=== PATIENT | female | born 1990 | race African-American/Black ===

== ENCOUNTER 2016-06-15 23:46 | Emergency (ER) | payer MEDICAID ==
[~2016-06-15] VITALS: Ht 175.3 cm; Wt 75.0 kg
[~2016-06-15 23:46] MED LIST: IBUP-779 PO; IRON18TA PO; MULT-1146 PO
[2016-06-16] MEDS ORDERED: BACITRACIN ZINC OINT UDPKT TOP ONE ×2 (04:30)
[2016-06-16] MEDS ORDERED: IBUPROFEN 600MG TABLET PO ONE (04:30)
[2016-06-16] MEDS ORDERED: LIDOCAINE HCL 1% 20ML VIAL (Pyxis) INJ MC ONE (04:30)
[2016-06-16] MEDS ORDERED: LIDOCAINE HCL/EPINEPHRINE 1%-EPI 1:100,000 20 ML VIAL MC ONE (04:30)
[2016-06-16 05:00] VITALS: BP 123/71
== END 2016-06-16 06:15 | disposition home or self-care (01) ==
LOC: ER 23:46
DX: S61.210A Laceration without foreign body of right index finger without damage to nail, initial encounter (principal); S61.212A Laceration without foreign body of right middle finger without damage to nail, initial encounter; S61.011A Laceration without foreign body of right thumb without damage to nail, initial encounter; F12.10 Cannabis abuse, uncomplicated; W26.0XXA Contact with knife, initial encounter; Y93.89 Activity, other specified; Y92.018 Other place in single-family (private) house as the place of occurrence of the external cause
CPT/HCPCS: 12002; 99283; J3490; X7700; Z7610; A4565

== ENCOUNTER 2016-06-18 11:33 | Emergency (ER) | payer MEDICAID ==
[~2016-06-18] VITALS: Ht 175.3 cm; Wt 73.0 kg
[2016-06-18] MEDS ORDERED: HYDROCODONE/ACETAMINOPHEN 5/325MG TABLET PO ONE (12:15)
[2016-06-18 12:26] VITALS: BP 130/70
== END 2016-06-18 13:52 | disposition home or self-care (01) ==
LOC: ER 13:25
DX: Z48.01 Encounter for change or removal of surgical wound dressing (principal); F17.210 Nicotine dependence, cigarettes, uncomplicated; F12.10 Cannabis abuse, uncomplicated; Z79.1 Long term (current) use of non-steroidal anti-inflammatories (NSAID); Z79.899 Other long term (current) drug therapy
CPT/HCPCS: 99282

== ENCOUNTER 2016-06-25 16:50 | Emergency (ER) | payer MEDICAID ==
[~2016-06-25] VITALS: Ht 175.3 cm; Wt 68.0 kg
[2016-06-25 17:00] VITALS: BP 123/68
== END 2016-06-25 19:00 | disposition left against medical advice (07) ==
LOC: ER 16:51
DX: Z48.02 Encounter for removal of sutures (principal); Z53.21 Procedure and treatment not carried out due to patient leaving prior to being seen by health care provider

== ENCOUNTER 2016-07-30 14:52 | Emergency (ER) | payer MEDICAID ==
[~2016-07-30] VITALS: Ht 175.3 cm; Wt 75.0 kg
[2016-07-30 15:16] VITALS: BP 123/72
== END 2016-07-30 17:15 | disposition left against medical advice (07) ==
LOC: ER 16:58
DX: M54.9 Dorsalgia, unspecified (principal); Z53.21 Procedure and treatment not carried out due to patient leaving prior to being seen by health care provider

== ENCOUNTER 2016-11-28 10:10 | Emergency (ER) | payer MEDICAID ==
[~2016-11-28] VITALS: Ht 170.2 cm; Wt 68.0 kg
[2016-11-28] MEDS ORDERED: ACETAMINOPHEN 325MG TABLET PO ONE (14:15)
[2016-11-28 15:19] VITALS: BP 110/64
== END 2016-11-28 15:21 | disposition home or self-care (01) ==
LOC: ER 10:10
DX: O26.891 Other specified pregnancy related conditions, first trimester (principal); M54.5 Low back pain; R21 Rash and other nonspecific skin eruption; F12.10 Cannabis abuse, uncomplicated; Z3A.11 11 weeks gestation of pregnancy
CPT/HCPCS: 99283

== ENCOUNTER 2017-04-10 01:04 | Emergency (ER) | payer MEDICAID ==
[~2017-04-10] VITALS: Ht 175.3 cm; Wt 88.5 kg
[2017-04-10] MEDS ORDERED: ACETAMINOPHEN 500MG TABLET PO ONE (07:00)
[2017-04-10 07:10] VITALS: BP 116/65
== END 2017-04-10 07:20 | disposition home or self-care (01) ==
LOC: ER 01:04
DX: O26.893 Other specified pregnancy related conditions, third trimester (principal); K08.89 Other specified disorders of teeth and supporting structures; Z3A.30 30 weeks gestation of pregnancy
CPT/HCPCS: 99283

== ENCOUNTER 2017-05-30 21:02 | Observation (INO) | payer MEDICAID ==
[~2017-05-30] VITALS: Ht 175.3 cm; Wt 95.7 kg
[2017-05-30] MEDS ORDERED: PNV1TABL76 PO (21:29)
[2017-05-30] MEDS ORDERED: CEFAZOLIN SODIUM 1000MG/VIAL IV ONE (22:00)
[2017-05-30] MEDS ORDERED: DEXT 5%/LACTATED RINGERS 1,000 ML IV SCH (22:00)
[2017-05-30 22:24] LABS: CLARITY URINE CLOUDY (CLEAR); COLOR URINE YELLOW (YELLOW); KETONES URINE NEGATIVE (NEGATIVE); LEUKOCYTE ESTERASE URINE NEGATIVE (NEGATIVE); NITRITE URINE NEGATIVE (NEGATIVE); OCCULT BLOOD URINE NEGATIVE (NEGATIVE); PH URINE 6.5 (4.5-8.0); PROTEIN URINE NEGATIVE (NEGATIVE); SPECIFIC GRAVITY URINE 1.023 (1.005-1.030)
[2017-05-30] MEDS ORDERED: CEFAZOLIN 1000MG PREMIX 50 ML IV NR (23:00)
== END 2017-05-30 23:30 | disposition home or self-care (01) ==
LOC: L&D 21:02
PROVIDERS: ADMIT Obstetrics & Gynecology; ATTEND Obstetrics & Gynecology
DX: O26.893 Other specified pregnancy related conditions, third trimester (principal); R10.31 Right lower quadrant pain; Z3A.38 38 weeks gestation of pregnancy
CPT/HCPCS: 81003; 96365; 99281; G0378; J0690; 96360

== ENCOUNTER 2017-06-13 03:50 | Observation (INO) | payer MEDICAID ==
[~2017-06-13] VITALS: Ht 175.3 cm; Wt 97.5 kg
[~2017-06-13 03:50] MED LIST changes: -IBUP-779 PO; -MULT-1146 PO; +PNV1TABL76 PO
== END 2017-06-13 06:35 | disposition home or self-care (01) ==
LOC: L&D 03:50
PROVIDERS: ADMIT Obstetrics & Gynecology; ATTEND Obstetrics & Gynecology
DX: O26.893 Other specified pregnancy related conditions, third trimester (principal); R10.30 Lower abdominal pain, unspecified; O48.1 Prolonged pregnancy; Z3A.40 40 weeks gestation of pregnancy
CPT/HCPCS: G0378 ×2; 99281

== ENCOUNTER 2017-06-15 11:57 | Inpatient (IN) | payer MEDICAID ==
[~2017-06-15] VITALS: Ht 175.3 cm; Wt 97.1 kg
[2017-06-15] MEDS ORDERED: FOLI-43 PO (12:28)
[2017-06-15] MEDS ORDERED: METHYLERGONOVINE MALEATE 0.2 MG/ML IM PRN (15:30)
[2017-06-15] MEDS ORDERED: NALOXONE HCL 0.4 MG/ML 1ML VIAL IM PRN (15:30)
[2017-06-15] MEDS ORDERED: CARBOPROST TROMETHAMINE 250 MCG/ML AMPUL IM PRN (15:30)
[2017-06-15] MEDS ORDERED: LIDOCAINE HCL 1% 20ML VIAL (Pyxis) INJ INFIL SCH (15:30)
[2017-06-15] MEDS ORDERED: BUTORPHANOL TARTRATE 2 MG/ML VIAL IV PRN (15:30)
[2017-06-15] MEDS ORDERED: MISOPROSTOL 100MCG TABLET VG SCH (15:30)
[2017-06-15 15:58] LABS: CLARITY URINE CLOUDY (CLEAR); COLOR URINE YELLOW (YELLOW); KETONES URINE NEGATIVE (NEGATIVE); LEUKOCYTE ESTERASE URINE 3+ (NEGATIVE); NITRITE URINE NEGATIVE (NEGATIVE); OCCULT BLOOD URINE NEGATIVE (NEGATIVE); PH URINE 7.5 (4.5-8.0); PROTEIN URINE NEGATIVE (NEGATIVE); SPECIFIC GRAVITY URINE 1.004 (1.005-1.030); UROBILINOGEN URINE 0.2 E.U./dL (0.2-1.0)
[2017-06-15] MEDS ORDERED: DEXT 5%/LR + PITOCIN 20UNITS/L 1,000 ML IV SCH (16:00)
[2017-06-15 16:10] LABS: *AMPHETAMINES SCREEN URINE NEGATIVE (NEGATIVE); *BARBITURATES SCREEN URINE NEGATIVE (NEGATIVE); *BENZODIAZEPINES SCREEN URINE NEGATIVE (NEGATIVE)
[2017-06-15] MEDS: LACTATED RINGERS 1,000 ML IV SCH ×4 (16:10→22:56)
[2017-06-15 16:11] LABS: INR 0.9; PARTIAL THROMBOPLASTIN TIME 25.8 sec (23.4-31.0); PROTHROMBIN TIME 9.8 sec (9.4-11.6)
[2017-06-15 16:12] LABS: *COCAINE SCREEN URINE NEGATIVE (NEGATIVE); CANNABINOID URINE SCREEN NEGATIVE (NEGATIVE); METHADONE URINE SCREEN NEGATIVE (NEGATIVE); OPIATES URINE SCREEN NEGATIVE (NEGATIVE); PHENCYCLIDINE URINE SCREEN NEGATIVE (NEGATIVE)
[2017-06-15 16:13] LABS: BASOPHILS % 0.6 % (0.0-2.0); EOSINOPHILS % 1.6 % (0.0-5.0); HEMATOCRIT. 33.3 % (36.0-48.0); HEMOGLOBIN. 11.2 g/dL (12.0-16.0); LYMPHOCYTES % 17.2 % (20.0-50.0); MEAN CORPUSCULAR HEMOGLOBIN 30.7 pg (28.0-32.0); MEAN PLATELET VOLUME 9.7 fl (7.4-10.4); MONOCYTES % 9.5 % (2.0-8.0); NEUTROPHILS % 71.1 % (40.0-76.0); PLATELET 198 x1000/uL (130-400); RED BLOOD CELL COUNT 3.66 mill/uL (4.2-5.4); RED CELL DISTRIBUTION WIDTH 13.9 % (11.6-14.6)
[2017-06-15] MEDS ORDERED: LIDOCAINE HCL/PF 1% 10 MG/ML 5ML VIAL IJ SCH (16:15)
[2017-06-15 16:44] LABS: HEPATITIS B SURFACE ANTIGEN NEGATIVE; RUBELLA IGG 29.9 IU/mL (4.99-10)
[2017-06-15] MEDS ORDERED: TERBUTALINE SULFATE 1MG/ML VIAL SUBCUT NR (18:33)
[2017-06-15] MEDS ORDERED: TERBUTALINE SULFATE 1MG/ML VIAL SUBCUT PRN (21:30)
[2017-06-15] MEDS ORDERED: BUPIVACAINE HCL/PF 0.25% (2.5MG/ML) 10ML ONE (22:59)
[2017-06-15] MEDS ORDERED: BUPIVACAINE HCL/NS/PF EPIDURAL 100 ML EP ONE (22:59)
[2017-06-15] MEDS ORDERED: FENTANYL CITRATE/PF 50MCG/ML 2ML VIAL ONE (23:00)
[2017-06-16] MEDS ORDERED: DEXT 5%/LR + PITOCIN 20UNITS/L 1,000 ML IV SCH (00:56)
[2017-06-16] MEDS ORDERED: INFLUENZA VIRUS VACCINE 0.5ML SYR IM ONE (01:00)
[2017-06-16] MEDS ORDERED: LANOLIN OINT 0.25 GM TUBE TOP PRN (01:00)
[2017-06-16] MEDS ORDERED: GLYCERIN/WITCH HAZEL LEAF MEDICATED PAD TOP PRN (01:00)
[2017-06-16] MEDS ORDERED: BISACODYL 10MG SUPP PR PRN (01:00)
[2017-06-16] MEDS ORDERED: ACETAMINOPHEN WITH CODEINE 300/30MG TABLET PO PRN (01:00)
[2017-06-16] MEDS ORDERED: HEMORRHOIDAL SUPP PR PRN (01:00)
[2017-06-16] MEDS ORDERED: DIPHENHYDRAMINE 25MG CAPSULE PO PRN (01:00)
[2017-06-16 04:10] VITALS: BP 109/56
[2017-06-16 05:20] VITALS: BP 105/59
[2017-06-16] MEDS: ACETAMINOPHEN WITH CODEINE 300/30MG TABLET PO PRN (05:33)
[2017-06-16 08:00] VITALS: BP 99/61
[2017-06-16] MEDS ORDERED: TETANUS, DIPHTHERIA, PERTUSSIS VAC/PF 0.5ML (>7YR OLD) IM ONE (08:00)
[2017-06-16] MEDS: IBUPROFEN 400MG TABLET PO PRN ×2 (08:32→15:24)
[2017-06-16] MEDS: PRENATAL VIT/FE FUMARATE/FA TABLET PO SCH (08:32)
[2017-06-16 08:41] LABS: BASOPHILS % 0.1 % (0.0-2.0); EOSINOPHILS % 0.1 % (0.0-5.0); HEMATOCRIT. 31.3 % (36.0-48.0); HEMOGLOBIN. 10.4 g/dL (12.0-16.0); LYMPHOCYTES % 8.8 % (20.0-50.0); MEAN CORPUSCULAR HEMOGLOBIN 29.7 pg (28.0-32.0); MEAN CORPUSCULAR VOLUME 89.7 fL (81.0-99.0); MEAN PLATELET VOLUME 10.1 fl (7.4-10.4); MONOCYTES % 10.7 % (2.0-8.0); NEUTROPHILS % 80.3 % (40.0-76.0); PLATELET 163 x1000/uL (130-400); RED BLOOD CELL COUNT 3.49 mill/uL (4.2-5.4); RED CELL DISTRIBUTION WIDTH 14.1 % (11.6-14.6)
[2017-06-16 16:00] VITALS: BP 108/54
[2017-06-16 19:30] VITALS: BP 101/48
[2017-06-16] MEDS ORDERED: DOCUSATE SODIUM 100MG CAPSULE PO SCH (21:00)
[2017-06-16 23:30] VITALS: BP 115/68
[2017-06-17] MEDS: ACETAMINOPHEN WITH CODEINE 300/30MG TABLET PO PRN ×2 (00:29→08:01)
[2017-06-17] MEDS: PRENATAL VIT/FE FUMARATE/FA TABLET PO SCH (08:01)
[2017-06-17 08:30] VITALS: BP 115/61
[2017-06-17] MEDS ORDERED: FERROUS SULFATE 325MG TABLET PO SCH (12:10)
== END 2017-06-17 15:51 | disposition home or self-care (01) | DRG 560 ==
LOC: L&D 11:57 → OBSVTOIN 11:57 → 7EST PP/OB 06-16 04:04
PROVIDERS: ADMIT Obstetrics & Gynecology; ATTEND Obstetrics & Gynecology
PROC: 3E0R3BZ Introduction of Anesthetic Agent into Spinal Canal, Percutaneous Approach (ICD-10-PCS; 2017-06-16)
PROC: 00HU33Z Insertion of Infusion Device into Spinal Canal, Percutaneous Approach (ICD-10-PCS; 2017-06-16)
PROC: 10E0XZZ Delivery of Products of Conception, External Approach (ICD-10-PCS; principal; 2017-06-16 00:40)
DX: O48.0 Post-term pregnancy (principal); D64.9 Anemia, unspecified; O99.02 Anemia complicating childbirth; Z37.0 Single live birth; Z3A.40 40 weeks gestation of pregnancy; O36.8130 Decreased fetal movements, third trimester, not applicable or unspecified; O76 Abnormality in fetal heart rate and rhythm complicating labor and delivery
CPT/HCPCS: 36415; 76815; 76818; 80305; 81003; 85025; 85610; 85730; 86592; 86703; 86762; 86850; 86900; 87340; J2590; J3010; J3105; J3490; J7120; A4315

== ENCOUNTER 2019-01-01 04:37 | Emergency (ER) | payer MEDICAID ==
[~2019-01-01] VITALS: Ht 167.6 cm; Wt 77.0 kg
[~2019-01-01 04:37] MED LIST changes: +FOLI-43 PO
[2019-01-01] MEDS ORDERED: SODIUM CHLORIDE 0.9% 1,000 ML IV ONE (07:13)
[2019-01-01 07:49] LABS: BASOPHILS % 0.4 % (0.0-2.0); HEMATOCRIT. 42.1 % (36.0-48.0); HEMOGLOBIN. 13.6 g/dL (12.0-16.0); MEAN CORPUSCULAR VOLUME 93.2 fL (81.0-99.0); MEAN PLATELET VOLUME 9.5 fl (7.4-10.4); MONOCYTES % 7.7 % (2.0-8.0); NEUTROPHILS % 83.9 % (40.0-76.0); PLATELET 247 x1000/uL (130-400); RED BLOOD CELL COUNT 4.52 mill/uL (4.2-5.4); RED CELL DISTRIBUTION WIDTH 14.8 % (11.6-14.6)
[2019-01-01 07:53] LABS: PROTHROMBIN TIME 10.3 sec (9.6-11.0)
[2019-01-01 07:56] LABS: CHLORIDE 113 mEq/L (98-107)
[2019-01-01 08:00] LABS: ETHANOL BLOOD 205 mg/dL
[2019-01-01 08:33] LABS: CLARITY URINE CLEAR (CLEAR); COLOR URINE YELLOW (YELLOW); KETONES URINE NEGATIVE (NEGATIVE); LEUKOCYTE ESTERASE URINE NEGATIVE (NEGATIVE); NITRITE URINE NEGATIVE (NEGATIVE); OCCULT BLOOD URINE 3+ (NEGATIVE); PROTEIN URINE 2+ (NEGATIVE); SPECIFIC GRAVITY URINE 1.009 (1.005-1.030); UROBILINOGEN URINE 0.2 E.U./dL (0.2-1.0)
[2019-01-01 08:56] LABS: *AMPHETAMINES SCREEN URINE NEGATIVE (NEGATIVE); *BARBITURATES SCREEN URINE NEGATIVE (NEGATIVE); *BENZODIAZEPINES SCREEN URINE NEGATIVE (NEGATIVE); *COCAINE SCREEN URINE NEGATIVE (NEGATIVE)
[2019-01-01 08:57] LABS: METHADONE URINE SCREEN NEGATIVE (NEGATIVE); OPIATES URINE SCREEN NEGATIVE (NEGATIVE); PHENCYCLIDINE URINE SCREEN NEGATIVE (NEGATIVE)
[2019-01-01 08:58] LABS: CANNABINOID URINE SCREEN PRESUMTIVE POSITIVE (NEGATIVE)
[2019-01-01] MEDS ORDERED: HYDROCODONE/ACETAMINOPHEN 5/325MG TABLET PO ONE (11:15)
[2019-01-01] MEDS ORDERED: LIDOCAINE HCL 1% 20ML VIAL (Pyxis) INJ INFIL ONE (11:30)
[2019-01-01] MEDS ORDERED: CEFAZOLIN 1000MG PREMIX 50 ML IV ONE (12:15)
[2019-01-01] MEDS ORDERED: MORPHINE SULFATE 2 MG/ML CPJ (NOT FOR IM USE) IV ONE (12:15)
[2019-01-01] MEDS ORDERED: MORPHINE SULFATE 4 MG/ML CPJ (NOT FOR IM USE) IV ONE (12:30)
[2019-01-01 15:20] VITALS: BP 113/66
== END 2019-01-01 15:35 | disposition short-term general hospital (02) ==
LOC: ER 04:37
DX: S81.012A Laceration without foreign body, left knee, initial encounter (principal); S27.321A Contusion of lung, unilateral, initial encounter; S00.12XA Contusion of left eyelid and periocular area, initial encounter; Z90.49 Acquired absence of other specified parts of digestive tract; V43.62XA Car passenger injured in collision with other type car in traffic accident, initial encounter; Y93.89 Activity, other specified; Y92.488 Other paved roadways as the place of occurrence of the external cause
CPT/HCPCS: 36415; 70450; 71045; 71250; 72125; 73552; 73562; 74176; 80053; 80305; 80320; 81003; 81025; 83605; 85025; 85610; 93005; 96365; 96375; 99285; A4217; J0690; J2270; J3490; J7030; Z7610; G0480

== ENCOUNTER 2019-01-08 22:59 | Emergency (ER) | payer MEDICAID ==
[~2019-01-08] VITALS: Ht 175.3 cm; Wt 78.0 kg
[2019-01-09] MEDS ORDERED: KETOROLAC 60MG/2ML VIAL IM STA (01:21)
[2019-01-09 01:56] LABS: CLARITY URINE CLEAR (CLEAR); COLOR URINE YELLOW (YELLOW); KETONES URINE NEGATIVE (NEGATIVE); LEUKOCYTE ESTERASE URINE NEGATIVE (NEGATIVE); NITRITE URINE NEGATIVE (NEGATIVE); OCCULT BLOOD URINE NEGATIVE (NEGATIVE); PROTEIN URINE NEGATIVE (NEGATIVE); SPECIFIC GRAVITY URINE 1.024 (1.005-1.030)
[2019-01-09 03:40] VITALS: BP 124/72
== END 2019-01-09 03:40 | disposition home or self-care (01) ==
LOC: ER 22:59
DX: S81.012D Laceration without foreign body, left knee, subsequent encounter (principal); M94.0 Chondrocostal junction syndrome [Tietze]; F17.210 Nicotine dependence, cigarettes, uncomplicated; Z98.890 Other specified postprocedural states; X58.XXXD Exposure to other specified factors, subsequent encounter
CPT/HCPCS: 71045; 81003; 81025; 93005; 93971; 96372; 99284; J1885

== ENCOUNTER 2019-01-23 13:25 | Emergency (ER) | payer MEDICAID ==
[~2019-01-23] VITALS: Ht 170.2 cm; Wt 60.0 kg
[2019-01-23 13:33] VITALS: BP 116/64
[2019-01-23] MEDS ORDERED: BACITRACIN ZINC OINT UDPKT TOP ONE (14:45)
== END 2019-01-23 15:01 | disposition home or self-care (01) ==
LOC: ER 13:25
DX: S81.012D Laceration without foreign body, left knee, subsequent encounter (principal); M25.562 Pain in left knee; V49.49XD Driver injured in collision with other motor vehicles in traffic accident, subsequent encounter; Z90.49 Acquired absence of other specified parts of digestive tract; Z79.899 Other long term (current) drug therapy
CPT/HCPCS: 99283; Z7610

== ENCOUNTER 2019-09-04 13:13 | Emergency (ER) | payer MEDICAID ==
[~2019-09-04] VITALS: Ht 175.3 cm; Wt 93.0 kg
[2019-09-04] MEDS ORDERED: IBUPROFEN 800MG TABLET PO ONE (15:45)
[2019-09-04] MEDS ORDERED: TRAMADOL 50MG TABLET PO ONE (15:45)
[2019-09-04 16:29] LABS: BASOPHILS % 0.4 % (0.0-2.0); EOSINOPHILS % 0.3 % (0.0-5.0); HEMATOCRIT. 37.4 % (36.0-48.0); HEMOGLOBIN. 12.9 g/dL (12.0-16.0); LYMPHOCYTES % 9.6 % (20.0-50.0); MEAN CORPUSCULAR HEMOGLOBIN 31.2 pg (28.0-32.0); MEAN CORPUSCULAR VOLUME 90.3 fL (81.0-99.0); MEAN PLATELET VOLUME 9.5 fl (7.4-10.4); MONOCYTES % 9.1 % (2.0-8.0); NEUTROPHILS % 80.6 % (40.0-76.0); PLATELET 208 x1000/uL (130-400); RED BLOOD CELL COUNT 4.14 mill/uL (4.2-5.4); RED CELL DISTRIBUTION WIDTH 14.7 % (11.6-14.6)
[2019-09-04 16:59] LABS: CLARITY URINE CLOUDY (CLEAR); COLOR URINE YELLOW (YELLOW); KETONES URINE 1+ (NEGATIVE); LEUKOCYTE ESTERASE URINE 2+ (NEGATIVE); NITRITE URINE NEGATIVE (NEGATIVE); OCCULT BLOOD URINE TRACE (NEGATIVE); PH URINE 6.5 (4.5-8.0); PROTEIN URINE TRACE (NEGATIVE); UROBILINOGEN URINE 0.2 E.U./dL (0.2-1.0)
[2019-09-04 19:33] VITALS: BP 123/66
== END 2019-09-04 20:15 | disposition home or self-care (01) ==
LOC: ER 13:13
DX: N83.292 Other ovarian cyst, left side (principal); N83.291 Other ovarian cyst, right side; R10.2 Pelvic and perineal pain
CPT/HCPCS: 36415; 76830; 76856; 81003; 81025; 84702; 85025; 86850; 86900; 99285

== ENCOUNTER 2021-08-08 19:59 | Emergency (ER) | payer MEDICAID ==
[~2021-08-08] VITALS: Ht 175.3 cm; Wt 72.5 kg
[2021-08-08] MEDS ORDERED: HYDROCODONE/ACETAMINOPHEN 5/325MG TABLET PO ONE (22:00)
[2021-08-08] MEDS ORDERED: ONDANSETRON 4MG ODT PO ONE (22:00)
[2021-08-08 22:58] LABS: HCG SCREEN NEGATIVE
[2021-08-08 23:00] LABS: CHLORIDE 108 mEq/L (98-107)
[2021-08-08 23:08] LABS: BASOPHILS % 1.4 % (0.0-2.0); HEMATOCRIT. 38.9 % (36.0-48.0); LYMPHOCYTES % 39.7 % (20.0-50.0); MEAN CORPUSCULAR HEMOGLOBIN 31.7 pg (28.0-32.0); MEAN CORPUSCULAR VOLUME 95.1 fL (81.0-99.0); MEAN PLATELET VOLUME 9.2 fl (7.4-10.4); MONOCYTES % 10.1 % (2.0-8.0); NEUTROPHILS % 46.8 % (40.0-76.0); PLATELET 236 x1000/uL (130-400); RED BLOOD CELL COUNT 4.09 mill/uL (4.2-5.4); RED CELL DISTRIBUTION WIDTH 14.5 % (11.6-14.6)
[2021-08-08] MEDS ORDERED: IBUP-2029 MT (23:47)
[2021-08-08] MEDS ORDERED: LIDO1ADH5 TP (23:51)
[2021-08-09 00:36] VITALS: BP 135/78
== END 2021-08-09 00:37 | disposition home or self-care (01) ==
LOC: ER 19:59
DX: R07.89 Other chest pain (principal); Z90.49 Acquired absence of other specified parts of digestive tract; Z79.899 Other long term (current) drug therapy
CPT/HCPCS: 36415; 71101; 80053; 81025; 83690; 84484; 84703; 85025; 93005; 99285; Q0162

== ENCOUNTER 2021-08-10 23:15 | Emergency (ER) | payer MEDICAID, OTHER ==
[~2021-08-10] VITALS: Ht 172.7 cm; Wt 76.3 kg
[~2021-08-10 23:15] MED LIST changes: +IBUP-2029 MT; +LIDO1ADH5 TP
[2021-08-11] MEDS: KETOROLAC 60MG/2ML VIAL IM PRN ×3 (01:56→03:00)
[2021-08-11 02:07] LABS: BASOPHILS % 1.2 % (0.0-2.0); EOSINOPHILS % 1.8 % (0.0-5.0); HEMATOCRIT. 39.8 % (36.0-48.0); MEAN CORPUSCULAR HEMOGLOBIN 30.8 pg (28.0-32.0); MEAN CORPUSCULAR VOLUME 94.2 fL (81.0-99.0); MEAN PLATELET VOLUME 9.1 fl (7.4-10.4); MONOCYTES % 9.7 % (2.0-8.0); NEUTROPHILS % 55.3 % (40.0-76.0); PLATELET 231 x1000/uL (130-400); RED BLOOD CELL COUNT 4.22 mill/uL (4.2-5.4); RED CELL DISTRIBUTION WIDTH 14.6 % (11.6-14.6)
[2021-08-11 02:16] LABS: CHLORIDE 110 mEq/L (98-107)
[2021-08-11] MEDS ORDERED: ACETAMINOPHEN WITH CODEINE 300/30MG TABLET PO STA (02:43)
[2021-08-11 02:57] LABS: CLARITY URINE CLEAR (CLEAR); COLOR URINE DARK YELLOW (YELLOW); KETONES URINE TRACE (NEGATIVE); LEUKOCYTE ESTERASE URINE 1+ (NEGATIVE); NITRITE URINE NEGATIVE (NEGATIVE); OCCULT BLOOD URINE 2+ (NEGATIVE); PH URINE 5.5 (4.5-8.0); PROTEIN URINE 1+ (NEGATIVE)
[2021-08-11 03:00] VITALS: BP 108/62
[2021-08-11] MEDS ORDERED: CYCL5TAB PO ×3 (03:42→04:11)
[2021-08-11] MEDS ORDERED: NAPR-681 PO ×3 (03:42→04:11)
== END 2021-08-11 04:20 | disposition home or self-care (01) ==
LOC: ER 23:15
DX: R07.89 Other chest pain (principal); Z98.890 Other specified postprocedural states
CPT/HCPCS: 80053; 81001; 81025; 83690; 85025; 96372; 99284; J1885

== ENCOUNTER 2021-09-22 09:42 | Emergency (ER) | payer MEDICAID, OTHER ==
[~2021-09-22] VITALS: Ht 175.3 cm; Wt 75.0 kg
[~2021-09-22 09:42] MED LIST changes: +CYCL5TAB PO; -IBUP-2029 MT; +NAPR-681 PO
[2021-09-22 10:48] LABS: CLARITY URINE CLEAR (CLEAR); COLOR URINE YELLOW (YELLOW); KETONES URINE 1+ (NEGATIVE); LEUKOCYTE ESTERASE URINE 2+ (NEGATIVE); NITRITE URINE NEGATIVE (NEGATIVE); OCCULT BLOOD URINE NEGATIVE (NEGATIVE); PH URINE 6.5 (4.5-8.0); PROTEIN URINE TRACE (NEGATIVE); SPECIFIC GRAVITY URINE 1.022 (1.005-1.030)
[2021-09-22 11:20] VITALS: BP 153/77
[2021-09-22] MEDS ORDERED: METR-167 MT (11:49)
[2021-09-22] MEDS ORDERED: FLUC150T46 MT (11:49)
== END 2021-09-22 11:21 | disposition home or self-care (01) ==
LOC: ER 09:54
DX: B37.9 Candidiasis, unspecified (principal); N76.0 Acute vaginitis; Z90.49 Acquired absence of other specified parts of digestive tract; Z79.899 Other long term (current) drug therapy
CPT/HCPCS: 81003; 81025; 87210; 99283